=== PATIENT | female | born 1945 | race Caucasian/White ===

== ENCOUNTER 2017-01-15 06:12 | Inpatient (IN) | payer MEDICARE ==
[~2017-01-15 06:12] MED LIST: Acetaminophen TAB* 325 MG PO ONE; Buffered Lidocaine 0.9% SYRIN* 5 ML/SYR SYRINGE INTRADERM ONE; Dexamethasone IV* 4 MG/ML 1 ML (4 MG) IV SLOW PU ONE; Famotidine IV* 10 MG/ML 2 ML (20 mg) IV ONE
[2017-01-15] MEDS ORDERED: Dexamethasone IV* 4 MG/ML 1 ML (4 MG) ONE (06:23)
[2017-01-15] MEDS ORDERED: Acetaminophen TAB* 325 MG ONE (06:24)
[2017-01-15] MEDS ORDERED: Famotidine IV* 10 MG/ML 2 ML (20 mg) ONE (06:24)
[2017-01-15] MEDS ORDERED: Clindamycin 900 MG IVPREMIX(* 900 MG/50 ML SDV IV ONE (06:24)
[2017-01-15] MEDS ORDERED: Buffered Lidocaine 0.9% SYRIN* 5 ML/SYR SYRINGE ONE (06:24)
[2017-01-15] MEDS ORDERED: Morphine PF AMP (0.5MG/ML)* 5 MG/10 ML AMP ONE (06:53)
[2017-01-15] MEDS ORDERED: Bupivacaine 0.5% SDV PF* 30 ML VIAL ONE (06:53)
[2017-01-15] MEDS ORDERED: Midazolam* 1 MG/ML 5 ML VIAL (5 MG) ONE (06:53)
[2017-01-15] MEDS ORDERED: fentaNYL* 50 MCG/ML 2 ML VIAL (100 MCG VIAL) ONE (06:53)
[2017-01-15] MEDS ORDERED: Propofol* 500 MG/50 ML BTL ONE (06:53)
[2017-01-15] MEDS ORDERED: Lidocaine 2% PF * 5 ML VIAL ONE (06:53)
[2017-01-15] MEDS ORDERED: EPHEDrine (Pressors)* 50 MG/ML VIAL ONE (08:22)
[2017-01-15] MEDS ORDERED: Ketorolac INJ* 30 MG/ML 1 ML VIAL ONE (08:22)
[2017-01-15] MEDS ORDERED: Ondansetron INJ* 2 MG/ML VIAL ONE (08:22)
[2017-01-15] MEDS ORDERED: oxyCODONE TAB* 5 MG TAB PO PRN ×2 (08:34→08:38)
[2017-01-15] MEDS ORDERED: Nalbuphine* 20 MG/ML 1 ML VIAL IV PRN ×2 (08:34→08:38)
[2017-01-15] MEDS ORDERED: Naloxone* 0.4 MG/ML 1 ML VIAL IV PRN (08:34)
[2017-01-15] MEDS ORDERED: HYDROcodone/ACETAMIN 5-325 MG* 1 TAB PO PRN (08:34)
[2017-01-15] MEDS ORDERED: Ibuprofen TAB* 600 MG PO PRN (08:34)
[2017-01-15] MEDS ORDERED: diPHENhydraMINE IV* 50 MG/ML 1 ml VIAL (BENADRYL) IV PRN ×2 (08:34→09:57)
[2017-01-15] MEDS ORDERED: Acetaminophen TAB* 325 MG PO PRN ×2 (08:34→09:57)
[2017-01-15] MEDS ORDERED: Ondansetron INJ* 2 MG/ML VIAL IV PRN ×3 (08:34→09:57)
[2017-01-15] MEDS ORDERED: EPHEDrine (Pressors)* 50 MG/ML VIAL IV PUSH PRN (08:34)
[2017-01-15] MEDS ORDERED: oxyCODONE/Acetamin 5/325 MG* TAB PO PRN ×2 (08:38→09:57)
[2017-01-15] MEDS ORDERED: OBEPIDURAL* 250 ML EPIDURAL SCH (09:00)
[2017-01-15] MEDS ORDERED: Scopolamine 1.5 mg* PATCH TRANSDERM SCH (09:00)
[2017-01-15] MEDS ORDERED: Bisacodyl SUPP* 10 MG SUPP PR PRN (09:57)
[2017-01-15] MEDS ORDERED: Ondansetron TAB* 4 MG PO PRN (09:57)
--- NOTE | 2017-01-15 11:03 | RAD ---
INDICATION: Status post total right knee replacement surgery. TECHNIQUE: 2 views of the right knee were obtained. FINDINGS: The patient is status post total right knee replacement surgery. The bones and prostheses are in normal alignment. There are multiple surgical lizbeth which project anterior. IMPRESSION: STATUS POST TOTAL RIGHT KNEE REPLACEMENT SURGERY.
[2017-01-15] MEDS ORDERED: Dextrose 50% Syringe 50 ML* 25 GM/50 ML SYRINGE IV PUSH PRN (11:15)
[2017-01-15] MEDS: Insulin LISPRO* 1 UNITS UNIT SUBCUT SCH ×3 (13:36→21:01)
[2017-01-15] MEDS: Clindamycin 600 MG IVPREMIX(* 600 MG/50 ML SDV IV SCH ×2 (15:37→23:23)
[2017-01-15] MEDS ORDERED: Warfarin TAB(*) 4 MG PO ONE (17:00)
[2017-01-15] MEDS ORDERED: Warfarin TAB(*) 10 MG PO ONE (17:00)
--- NOTE | 2017-01-15 18:28 | CONS ---
CONSULTATION REPORT:* ADDENDUM: Sosa Coleman is a 71-year-old female who was evaluated by the medicine service postoperative total knee replacement as requested by Dr. Laboy. The patient has a history of diabetes and hypertension for the treatment of which recommendations were made. For further details for the patient's presentation and plan, please see consultation report dictated by Linda Friend NP, on 01/15/17, with which I agree. [id number]/[facility] #: [id number] MTDD
--- NOTE | 2017-01-15 19:09 | CONS ---
ATTENDING PHYSICIAN ADDENDUM NOW INCLUDED ON THIS REPORT CC: Dr. Laboy; ROSSI Arreguin * CONSULTATION REPORT: DATE OF CONSULT: 01/15/17 PHYSICIAN REQUESTING CONSULT: Dr. Laboy. PRIMARY CARE PROVIDER: ROSSI Arreguin ATTENDING PHYSICIAN: Dr. Britta Fortune * (report dictated by Linda Friend NP). REASON FOR CONSULT: Medical comanagement. HISTORY OF PRESENT ILLNESS: Ms. Coleman is a 71-year-old female with past medical history significant for well-controlled diabetes, hypertension, sleep apnea, GERD, and SVT, status post ablation, who presents to the hospital today for an elective right total knee replacement. Please refer to H and P dictated by Dr. Laboy for full details. In summary, the patient has had a failure of outpatient conservative medical treatment for her right knee pain and opted for right knee arthroplasty. Ms. Coleman states that her blood sugars have been well controlled on her current regimen. In addition, her blood pressure is also well controlled. The patient uses a CPAP for sleep apnea that she has brought with her. The patient states she continues to take sotalol and has not had any palpitations or episodes of SVT since her ablation. Hospitalists were asked to assist with the comanagement of the patient's multiple medical issues. PAST MEDICAL HISTORY: Type 2 diabetes; hypertension; obstructive sleep apnea; GERD; osteoarthritis; obesity; COPD; restless legs syndrome; SVT, status post ablation. PAST SURGICAL HISTORY: Cholecystectomy, lumpectomy, appendectomy, bilateral hip replacement, L3 to L5 lumbar fusion, and left total knee replacement, July 2015. MEDICATIONS: Home medications include: 1. Percocet 1 tablet oral every 6 hours as needed. 2. Glucophage 1000 mg oral in the morning and at bedtime. 3. Celebrex 100 mg oral in the morning. 4. Sotalol 40 mg oral twice daily. 5. Ropinirole 0.25 mg oral at bedtime. 6. Protonix 20 mg oral in the morning. 7. Fish oil 1200 mg oral twice daily. 8. Multivitamin 1 tablet oral daily. 9. Magnesium oxide 400 mg oral 3 times daily. 10. Lisinopril/hydrochlorothiazide 20/25 mg 1 tablet oral daily. 11. Tradjenta 5 mg oral in the morning. 12. Neurontin 600 mg oral at bedtime. 13. Flonase 1 spray both nares in the morning. 14. Vitamin B12 2500 mcg oral in the morning. 15. Trilipix 135 mg oral at bedtime. 16. Zyrtec 10 mg oral in the morning. 17. Soma 1 tablet oral twice daily as needed. 18. Calcium 600 mg oral in the morning. 19. Lipitor 20 mg oral at bedtime. FAMILY HISTORY: The patient reports history of coronary artery disease and cancer in the family. SOCIAL HISTORY: The patient has never been a smoker and seldom drinks alcohol. She denies any drug use. She lives with her , who will be the surrogate decision maker in the event the patient cannot make decisions for herself. REVIEW OF SYSTEMS: I performed a 14-point review of systems; all the pertinent positives and negatives are mentioned in the history of present illness. The remaining review of systems is negative. PHYSICAL EXAM: Vital Signs: Temperature 96.8, heart rate 54, respiratory rate 14, blood pressure 133/76, oxygen saturation 100%. Appearance: The patient is alert, appeared to be in no apparent distress. Head, Eyes, Ears, Nose, and Throat: Normocephalic/atraumatic. Pupils were equal and reactive to light. Extraocular movements were intact. Neck was supple. There was no lymphadenopathy noted. Respiratory: There was no accessory muscle use. Lungs were clear to auscultation. Cardiovascular: S1, S2 were crisp. Rate and rhythm were regular. There were no murmurs, rubs, or gallops heard. Abdomen: Soft, nontender, nondistended. There were bowel sounds x4. Extremities: There was no lower extremity edema. DP and PT pulses were 2+ and symmetric. Musculoskeletal: There was no clubbing or cyanosis noted. The patient exhibited equal strength in all extremities. Skin: There were no rashes or abnormalities seen. Right knee incision and dressing intact. Neuro: Cranial nerves II through XII are intact. The patient moves all extremities. Lower extremities were intact to light touch. Psych: The patient is alert and oriented x3. DIAGNOSTIC STUDIES/LAB DATA: Preop laboratory data from 01/03/17, sodium 137, potassium 4.5, chloride 103, CO2 26, BUN 38, creatinine 1.0, glucose 97, calcium 9.8. White blood cell count 3.3, hemoglobin 13, hematocrit 40, platelet count 198. INR 0.85, PTT 30.2. Urinalysis is negative. Imaging: Postoperative knee x-ray from 10:00 a.m. this morning shows status post total right knee replacement surgery. IMPRESSION: This is a 71-year-old female with past medical history significant for diabetes, hypertension, obstructive sleep apnea, and supraventricular tachycardia, status post ablation, who presents to hospital on 01/15/17 for an elective right total knee replacement. PLAN: 1. Postop day #0 status post right total knee arthroplasty. Management will be per Orthopedic Surgery. The patient will have physical therapy and occupational therapy. She will have pain medications as needed and a bowel regimen, and her H and H will be checked on a daily basis. Galvan will be discontinued on postop day #1. 2. Type 2 diabetes. Metformin and Tradjenta will be held. She will have blood sugars checked before every meal with Lispro coverage. 3. Hypertension. Currently blood pressure is controlled. Her blood pressure medicine will be held for now and can be restarted once her systolic blood pressure is greater than 140. 4. Obstructive sleep apnea. Continue home CPAP. 5. Hyperlipidemia. Continue atorvastatin. 6. DVT prophylaxis. Will be per Orthopedic Surgery starting with subcu heparin. 7. Disposition. Will be per Orthopedic Surgery. Thank you for this consultation. We will see the patient as needed. Please call with any further questions. Reviewed by LINDA FRIEND NP 01/16/2017 1130 ADDENDUM: Sosa Coleman is a 71-year-old female who was evaluated by the medicine service postoperative total knee replacement as requested by Dr. Laboy. The patient has a history of diabetes and hypertension for the treatment of which recommendations were made. For further details for the patient's presentation and plan, please see consultation report dictated by Linda Friend NP, on , with which I agree. BRITTA FORTUNE MD [id number]/[facility] #: [id number] Delma [id number]/[facility] #: [id number] CUBA
[2017-01-15] MEDS: Ropinirole TAB* 0.5 MG TAB PO SCH (21:00)
[2017-01-15] MEDS ORDERED: metFORMIN* 1,000 MG TAB PO SCH (21:00)
[2017-01-15] MEDS: Magnesium Hydroxide LIQ* 30 ML UDC PO SCH (21:01)
[2017-01-15] MEDS: Docusate CAP* 100 MG PO SCH (21:02)
[2017-01-15] MEDS: Atorvastatin* 20 MG TAB PO SCH (21:02)
[2017-01-15] MEDS: Gabapentin CAP(*) 300 MG PO SCH (21:02)
[2017-01-15] MEDS: Magnesium Oxide TAB* 400 MG PO SCH (21:02)
[2017-01-15] MEDS: Sotalol TAB* 80 MG PO SCH (21:02)
[2017-01-15] MEDS: CHOLINE FENOFIBRATE PO SCH (21:04)
--- NOTE | 2017-01-16 00:09 | OP ---
DATE OF OPERATION: 01/15/17 - ROOM #341 DATE OF : 41 SURGEON: Nikko Laboy MD ASSISTANTS: 1. Bethanie Blue RPA 2. Carola Alejandro RPA ANESTHESIOLOGIST: Jazmin Hogan MD ANESTHESIA: Spinal/epidural and sedation. PRE-OP DIAGNOSIS: Osteoarthritis, right knee. POST-OP DIAGNOSIS: Osteoarthritis, right knee. OPERATIVE PROCEDURE: Right total knee arthroplasty. INDICATIONS: Ms. Coleman is a 71-year-old female who has been having more and more troubles with her right knee and lower back pain. She recently underwent shoulder surgery, but was still using the pain killers from the surgery for her knee and not the shoulder. She reports that with scaling back the pain medicine , she realizes the knee has been quite limiting for her and she is very interested in a right total knee arthroplasty. She had previously undergone a left total knee arthroplasty a little over a year ago. Risks of surgery such as infection, scar formation, stiffness, DVT, pulmonary embolism, and hardware failure were some of the risks discussed. She had been declared medically optimized and wished to proceed. ESTIMATED BLOOD LOSS: Less than 50 cc. COMPLICATIONS: None. HARDWARE: Leonora Persona #4 femur, D tibia, 10-mm polyethylene, 32-mm all polyethylene patellar button. DESCRIPTION OF PROCEDURE: The patient was brought to the OR and spinal/ epidural anesthesia was introduced. Galvan catheter was then placed. Tourniquet was placed over the proximal right thigh and was used during the case. Total tourniquet time would be 68 minutes. Right knee was prepped and then draped. Bethanie Blue RPA and Carola Alejandro RPA were present throughout the case from positioning to draping and placement of the instrumentation and hardware. The case could not have been done without an electrician station assistant. Right knee was prepped and then draped. Esmarch was used to exsanguinate the limb. The tourniquet was raised. A midline incision was made centered about the patella and carried proximally and distally for about 6 cm above the superior and inferior poles of the patella. Incision was carried down through the skin and subcutaneous tissues. Small bleeders were ligated using electrocautery. Extensor mechanism was exposed and a sharp parapatellar arthrotomy was made. Quite a bit of clear yellowish joint fluid was encountered. Soft tissues were sharply elevated from the medial side of the tibia and the fat pad was sharply excised. Extensive wear of the patellofemoral joint could be seen where she had denuded all of the cartilage and had worn grooves into the bone. Similarly, she had worn away most of the lateral facet of the patella as well. Patella was measured and she was approximately 21 mm in thickness at the non-worn area. Patella cut was taken leaving approximately 11 mm of bone. Patella was then easily subluxated laterally and the knee was flexed up. Step drill was used over the femoral canal and intramedullary guide was placed. Guide was adjusted until it was parallel with the epicondyle and then pinned into place. Distal femoral cutting block was then pinned into place and intramedullary guide was removed. Distal femoral cut was taken and it appeared a nice cut was obtained. Femur was sized and she sized between a 4 and 5 once again. Holes were drilled, but we did not have the cutting blocks. Attention was turned to the tibia. Step drill was used over the tibial canal. Intramedullary guide was placed. Guide was adjusted until it appeared would take 2 mm from the worn medial side. Cutting guide was then pinned into place and proximal tibial cut was taken. It appeared a nice cut was obtained. Spacer block was placed and she was just a little snug with a 10-mm block. Additional 2 mm was taken and a little bit of bone was shaved from the medial side of the femur. Spacer block sat much nicely and alignment appeared quite good. Blocks finally had come up and 4 block was placed. Superior drill hole actually caused the drill to skive and bend because it was going right into where she had the hard sclerotic bone. Chevy wing was placed and it appeared it would not notch the femur. Anterior and posterior femoral cuts followed by the chamfer cuts were taken. She has had a very small notch towards the lateral side of the femur. Bone was removed and spacer block was used in extension and flexion and her gaps appeared quite good. Tibia was then sized and she sat nicely for a D. This was pinned into place, the proximal tibia was drilled and then punched. Femoral trial was placed and the stud holes were drilled and the femoral notch was taken. 10 polyethylene was placed and now she came out nicely into full extension and easily flexed. Patella would tend to slip every now and then. Patella was sized and appeared a [address], there will be a little bit of overhanging both where she had worn away on the lateral side and just a little bit by the medial side. Holes were drilled and trial was snapped into place. Patellar tracking was now very good. She had no longer wanted to sublux it. Trial instrumentation was removed and the knee was copiously pulse lavaged. Cement was been prepared. Tibia followed by femur and patella were all cemented into place. Excess cement was removed and cement was allowed to harden. Once the cement had hardened, knee was searched for excess cement and a few small pieces were found. Knee was again copiously pulse lavaged. She was again trialed with the 10 and had the same wonderful motion and stability. 10 polyethylene was then snapped into place. Knee was again copiously pulse lavaged and parapatellar arthrotomy was repaired using interrupted #1 Vicryl sutures. Tourniquet was let down and no significant bleeding was encountered. Knee was again pulse lavaged. The subcutaneous tissues were reapproximated with 2-0 Vicryl. Skin was closed using lizbeth. Sterile dressing and a Cryo/Cuff were applied in the OR. The patient was then awakened, stable on transfer to the recovery room. [id number]/[facility] #: [id number] CUBA
[2017-01-16 05:10] LABS: Hematocrit 30 % (35-47); Hemoglobin 10.2 g/dl (12.0-16.0)
[2017-01-16] MEDS: oxyCODONE TAB* 5 MG TAB PO PRN ×2 (05:20→17:33)
[2017-01-16 05:32] LABS: Calcium 8.8 mg/dL (8.6-10.3); EGFR African American 64.6 (>60); EGFR Non-African American 50.3 (>60); Potassium 4.2 mmol/L (3.5-5.0)
--- NOTE | 2017-01-16 08:02 | PN ---
Progress Note - Progress Note Date of Service: 01/16/17 SOAP: Subjective: []Patient seen at bedside. She complains of right knee pain, improved with soma and morphine. Percocet did not seem to reduce pain. Denies chest pain, shortness of breath, dizziness, nausea, leg numbness, chills or fever. Objective: [] Vital Signs Temp 98.2 F 01/16/17 07:23 Pulse 62 01/16/17 07:23 Resp 17 01/16/17 07:23 BP 105/51 01/16/17 07:23 Pulse Ox 95 01/16/17 07:23 Intake & Output 01/15/17 01/16/17 01/16/17 18:59 06:59 18:59 Intake Total 3160 2643 Output Total 1550 750 Balance 1610 1893 Intake: IV Fluids 1999 1443 LR 1443 lr 2000 Oral 1160 1200 Output: Galvan 1500 750 Estimated Blood Loss 50 Other: # Bowel Movements 0 Laboratory Last Values Hgb 10.2 g/dl (12.0-16.0) L 01/16/17 04:45 Hct 30 % (35-47) L 01/16/17 04:45 INR (Anticoag Therapy) 1.04 (0.89-1.11) 01/16/17 04:45 Sodium 134 mmol/L (133-145) 01/16/17 04:45 Potassium 4.2 mmol/L (3.5-5.0) 01/16/17 04:45 Chloride 102 mmol/L (101-111) 01/16/17 04:45 Carbon Dioxide 28 mmol/L (22-32) 01/16/17 04:45 Anion Gap 4 mmol/L (2-11) 01/16/17 04:45 BUN 30 mg/dL (6-24) H 01/16/17 04:45 Creatinine 1.07 mg/dL (0.51-0.95) H 01/16/17 04:45 Est GFR ( Amer) 64.6 (>60) 01/16/17 04:45 Est GFR (Non-Af Amer) 50.3 (>60) 01/16/17 04:45 BUN/Creatinine Ratio 28.0 (8-20) H 01/16/17 04:45 Glucose 115 mg/dL (70-100) H 01/16/17 04:45 POC Glucose (mg/dL) 181 mg/dL (70-100) H 01/15/17 16:30 Calcium 8.8 mg/dL (8.6-10.3) 01/16/17 04:45 General: Out of bed in chair. Calm, cooperative, well appearing and in no acute distress RLE: Dressing is clean, dry and intact. Bilateral lower extremities: Calves are supple and nontender without erythema, edema or palpable cords. Negative gale's sign. Sensation is intact distally. 2+ DP and PT pulses, brisk capillary refill. DF/PF intact. Assessment: []Right total knee arthroplasty 01/15, Dr. Laboy Plan: []WBAT PT/OT. Per PT may need SNF as patient required after last TKA Glucose elevated yesterday, improved today. Continues to have finger stick prior to meals Percocet not controlling pain, per patient morphine and soma much better pain control Coumadin 6 mg today
[2017-01-16] MEDS: Morphine INJ* 2 MG/ML 1 ML SYRINGE (TWO MG - NEW SYRINGE VERSION) IV PRN ×3 (08:04→23:08)
[2017-01-16] MEDS: Sotalol TAB* 80 MG PO SCH ×2 (08:07→20:44)
[2017-01-16] MEDS: Docusate CAP* 100 MG PO SCH ×2 (08:07→20:43)
[2017-01-16] MEDS: Carisoprodol TAB* 350 MG PO PRN ×2 (08:07→20:43)
[2017-01-16] MEDS: Cyanocobalamin TAB* 500 MCG PO SCH (08:08)
[2017-01-16] MEDS: Vitamin THERAPEUTIC TAB PO SCH (08:09)
[2017-01-16] MEDS: Cetirizine* 10 MG TAB PO SCH (08:09)
[2017-01-16] MEDS: Magnesium Oxide TAB* 400 MG PO SCH ×3 (08:09→20:43)
[2017-01-16] MEDS: Magnesium Hydroxide LIQ* 30 ML UDC PO SCH ×2 (08:09→20:44)
[2017-01-16] MEDS: Omeprazole CAP* 20 MG PO SCH (08:09)
[2017-01-16] MEDS: Fluticasone NASAL SPRAY 50MCG* 16 gm SPRAY BTL BOTH NARES SCH (08:10)
[2017-01-16] MEDS: Clindamycin 600 MG IVPREMIX(* 600 MG/50 ML SDV IV SCH (08:10)
[2017-01-16] MEDS: Heparin VIAL(*) 5000 UNITS/ML VIAL (FIVE THOUSAND) SUBCUT SCH ×2 (08:11→20:46)
[2017-01-16] MEDS ORDERED: Lisinopril/HCTZ 20/25(NF) TAB PO SCH (09:00)
[2017-01-16] MEDS ORDERED: Linagliptin (NF) 5 MG TAB PO SCH (09:00)
[2017-01-16] MEDS: Insulin LISPRO* 1 UNITS UNIT SUBCUT SCH ×4 (09:30→20:45)
[2017-01-16] MEDS: oxyCODONE/Acetamin 5/325 MG* TAB PO PRN ×3 (10:25→19:31)
[2017-01-16] MEDS ORDERED: Warfarin TAB(*) 6 MG PO SCH (17:00)
[2017-01-16] MEDS: Ropinirole TAB* 0.5 MG TAB PO SCH (20:42)
[2017-01-16] MEDS: Atorvastatin* 20 MG TAB PO SCH (20:42)
[2017-01-16] MEDS: Gabapentin CAP(*) 300 MG PO SCH (20:43)
[2017-01-16] MEDS: CHOLINE FENOFIBRATE PO SCH (21:28)
[2017-01-17] MEDS: oxyCODONE/Acetamin 5/325 MG* TAB PO PRN ×4 (04:38→23:47)
[2017-01-17 05:30] LABS: Hematocrit 35 % (35-47); Hemoglobin 11.5 g/dl (12.0-16.0)
--- NOTE | 2017-01-17 07:15 | PN ---
Progress Note - Progress Note Date of Service: 01/17/17 SOAP: Subjective: Pt found sleeping, easily arousable. Reports had to get to the bathroom a few times o/n, getting up tired her out. + BM Objective: VSS- afebrile. Labs: H/H: 11.5/35, INR: 2.46 RIght knee wound benign. No drainage, no erythema, some swelling. Easily moves ankle and toes Assessment: Stable Plan: Cont OOB/PT, DVT prophalaxis, care.
[2017-01-17] MEDS: Insulin LISPRO* 1 UNITS UNIT SUBCUT SCH ×4 (08:35→19:43)
[2017-01-17] MEDS: Magnesium Hydroxide LIQ* 30 ML UDC PO SCH ×2 (08:56→19:41)
[2017-01-17] MEDS: Cyanocobalamin TAB* 500 MCG PO SCH (09:50)
[2017-01-17] MEDS: Cetirizine* 10 MG TAB PO SCH (09:50)
[2017-01-17] MEDS: Hydrochlorothiazide TAB* 25 MG PO SCH (09:51)
[2017-01-17] MEDS: Lisinopril TAB* 10 MG PO SCH (09:51)
[2017-01-17] MEDS: Sotalol TAB* 80 MG PO SCH ×2 (09:52→19:52)
[2017-01-17] MEDS: Omeprazole CAP* 20 MG PO SCH (09:52)
[2017-01-17] MEDS: Magnesium Oxide TAB* 400 MG PO SCH ×3 (09:52→19:51)
[2017-01-17] MEDS: Vitamin THERAPEUTIC TAB PO SCH (09:54)
[2017-01-17] MEDS: Fluticasone NASAL SPRAY 50MCG* 16 gm SPRAY BTL BOTH NARES SCH (10:54)
[2017-01-17] MEDS: Docusate CAP* 100 MG PO SCH ×2 (10:55→19:50)
[2017-01-17] MEDS: oxyCODONE TAB* 5 MG TAB PO PRN ×2 (12:02→19:50)
[2017-01-17] MEDS: Morphine INJ* 2 MG/ML 1 ML SYRINGE (TWO MG - NEW SYRINGE VERSION) IV PRN (14:26)
[2017-01-17] MEDS: Gabapentin CAP(*) 300 MG PO SCH (19:49)
[2017-01-17] MEDS: Atorvastatin* 20 MG TAB PO SCH (19:50)
[2017-01-17] MEDS: Ropinirole TAB* 0.5 MG TAB PO SCH (19:51)
[2017-01-17] MEDS: CHOLINE FENOFIBRATE PO SCH (20:30)
[2017-01-18] MEDS: oxyCODONE TAB* 5 MG TAB PO PRN (04:55)
[2017-01-18 06:19] LABS: Hematocrit 31 % (35-47); Hemoglobin 10.5 g/dl (12.0-16.0)
--- NOTE | 2017-01-18 07:39 | DS ---
AMENDED REPORT NOW INCLUDES COSIGNER DESIGNATION - ESIGNED BEFORE ADJUSTMENTS DISCHARGE SUMMARY: DATE OF ADMISSION: 01/15/17 DATE OF DISCHARGE: 01/18/17 DATE OF OPERATION: 01/15/17 PROVIDER: Dr. Nikko Laboy * (DICTATED BY ROSSI SMITH) ASSISTANTS: 1. ROSSI Alarcon 2. ROSSI Robbins PREOPERATIVE DIAGNOSIS: Osteoarthritis of the right knee. OPERATIVE PROCEDURE: Right total knee arthroplasty. HISTORY: Ms. Coleman is a 71-year-old female who has been having more troubles with her right knee and lower back pain. She recently underwent shoulder surgery but was using pain killers from the surgery for her knee not the shoulder. She reports that with scaling back on the pain medication, she realizes that the knee has been quite limiting for her and she is very interested in right total knee arthroplasty. She has previously undergone left total knee arthroplasty. HOSPITAL COURSE: The patient was admitted to [facility] on 01/15/17 and underwent a right total knee arthroplasty by Dr. Laboy with no complications. The patient recovered shortly in the postanesthesia care unit and was then transferred to the short stay surgical unit in stable condition. On postop day 1, the patient's H and H was 10.2/30. INR was 1.04 after a dose of Coumadin of 8 mg the night before. Dressing was clean, dry, and intact. Extremity was neurovascularly intact. She did demonstrate dorsi and plantar flexion with good strength. She was able to get out of bed with physical therapy. She required IV morphine and oral Soma for pain control on postop day 2. Incision was benign, minimal discharge. No erythema or warmth. The patient 's H and H was 11.5/35 and INR was 2.04 from a dose of 6 mg of Coumadin the night before. Pain was controlled with Percocet, oxycodone, morphine. The patient was able to ambulate using rolling walker and assistance. Postop day 3 , the patient's H and H was 105/31. INR was 2.24 after a dose of 0 mg of Coumadin the night before. The patient's pain was well controlled and was found stable for discharge. Throughout her hospital course, her vital signs have remained stable and she was afebrile. DISCHARGE CONDITION: Stable to [facility]. DISCHARGE MEDICATIONS: 1. Calcium 600 mg p.o. q.a.m. 2. Tradjenta 5 mg p.o. q.a.m. 3. Soma 350 mg 1 tab p.o. b.i.d. p.r.n. 4. Gabapentin 300 mg capsule take 2 tabs p.o. at bedtime. 5. Ropinirole 0.25 mg p.o. at bedtime. 6. Trilipix 135 mg capsule p.o. at bedtime. 7. Metformin 1000 mg tab in a.m. and at bedtime. 8. Sotalol 40 mg p.o. in a.m. and at bedtime. 9. Atorvastatin 20 mg at bedtime. 10. Multivitamin 1 cap q.a.m. 11. B12 2500 mcg p.o. q.a.m. 12. Pantoprazole 20 mg p.o. q.a.m. 13. Flonase 1 spray both nares q.a.m. 14. Zyrtec Allergy 10 mg capsule p.o. q.a.m. 15. Fish oil 1200 mg b.i.d. 16. Percocet 5/325 one to two tabs by mouth q.4 to 6 hours p.r.n. pain, MDD of 8. 17. Zestoretic one tab p.o. daily. 18. Magnesium oxide 400 mg p.o. t.i.d. 19. Colace 100 mg p.o. b.i.d. 20. Coumadin 2 mg dosing as suggested by INRs. DISCHARGE INSTRUCTIONS: The patient will be discharged to [facility] facility. She is weightbearing as tolerated. She may shower, allowing water to run on the wound with light soap and water, pad dry, do not submerge. Nursing staff will offer wound checks and wound care dressing can be changed daily. Remove lizbeth in 10 to 12 days. INRs are to be done Sunday and to determine Coumadin dosing. Take 0 mg 01/18, take 2 mg 01/19,18,19. Recheck INR 01/22 for further dosing instruction. If you experience shortness of breath or chest pain, go to the emergency room. If wound site is red, draining, worsening pain, please call our office. BHAVIN GARCÍA, ROSSI [id number]/[facility] #: [id number] [facility] F[facility]ERI CHILDREN'S HOSPITALKaela
[2017-01-18] MEDS: Insulin LISPRO* 1 UNITS UNIT SUBCUT SCH ×2 (08:32→12:19)
[2017-01-18] MEDS ORDERED: Scopolamine PATCH Remove* 1 NOTE MISC PATCH OFF ONE (08:35)
[2017-01-18] MEDS: Magnesium Hydroxide LIQ* 30 ML UDC PO SCH (08:47)
[2017-01-18] MEDS: Fluticasone NASAL SPRAY 50MCG* 16 gm SPRAY BTL BOTH NARES SCH (08:53)
[2017-01-18] MEDS: Omeprazole CAP* 20 MG PO SCH (08:54)
[2017-01-18] MEDS: Sotalol TAB* 80 MG PO SCH (08:54)
[2017-01-18] MEDS: Magnesium Oxide TAB* 400 MG PO SCH ×2 (08:54→13:12)
[2017-01-18] MEDS: Hydrochlorothiazide TAB* 25 MG PO SCH (08:54)
[2017-01-18] MEDS: Lisinopril TAB* 10 MG PO SCH (08:54)
[2017-01-18] MEDS: Vitamin THERAPEUTIC TAB PO SCH (08:55)
[2017-01-18] MEDS: Docusate CAP* 100 MG PO SCH (08:55)
[2017-01-18] MEDS: Cyanocobalamin TAB* 500 MCG PO SCH (08:55)
[2017-01-18] MEDS: Cetirizine* 10 MG TAB PO SCH (08:55)
--- NOTE | 2017-01-18 10:40 | PN ---
Progress Note - Progress Note Date of Service: 01/18/17 SOAP: Subjective: []Patient seen out of bed in chair. She denies pain. No shortness of breath, chest pain, nausea, dizziness or leg numbness. Her operative leg is swollen and not painful, she reports that this was the case after her other knee was done as well. Objective: [] Vital Signs Temp 98.0 F 01/18/17 07:23 Pulse 67 01/18/17 07:23 Resp 18 01/18/17 10:26 BP 130/58 01/18/17 07:23 Pulse Ox 99 01/18/17 08:00 Intake & Output 01/17/17 01/18/17 01/18/17 18:59 06:59 18:59 Intake Total 2040 100 300 Output Total 1250 700 200 Balance 790 -600 100 Intake: Oral 2040 100 300 Output: Urine 1250 700 200 Other: Estimated Void Medium Large Date of Last Bowel 01/17/17 Movement # Bowel Movements 1 Estimated Stool Amount Medium # Voids 1 1 Laboratory Last Values Hgb 10.5 g/dl (12.0-16.0) L 01/18/17 06:08 Hct 31 % (35-47) L 01/18/17 06:08 INR (Anticoag Therapy) 2.24 (0.89-1.11) H 01/18/17 06:08 Sodium 134 mmol/L (133-145) 01/16/17 04:45 Potassium 4.2 mmol/L (3.5-5.0) 01/16/17 04:45 Chloride 102 mmol/L (101-111) 01/16/17 04:45 Carbon Dioxide 28 mmol/L (22-32) 01/16/17 04:45 Anion Gap 4 mmol/L (2-11) 01/16/17 04:45 BUN 30 mg/dL (6-24) H 01/16/17 04:45 Creatinine 1.07 mg/dL (0.51-0.95) H 01/16/17 04:45 Est GFR ( Amer) 64.6 (>60) 01/16/17 04:45 Est GFR (Non-Af Amer) 50.3 (>60) 01/16/17 04:45 BUN/Creatinine Ratio 28.0 (8-20) H 01/16/17 04:45 Glucose 115 mg/dL (70-100) H 01/16/17 04:45 POC Glucose (mg/dL) 107 mg/dL (70-100) H 01/18/17 07:18 Calcium 8.8 mg/dL (8.6-10.3) 01/16/17 04:45 General: Well appearing, no acute distress RLE: Incision clean, dry, intact without surrounding erythema or edema. Lower leg with 2+ edema and mild erythema circumferentially. Belly of calf and anterior sanabria are equally tender. No palpable cords, negative gale's sign. DF/ PF intact. DP/PT 2+. Capillary refill and sensation intact distally. LLE: Calf supple, 1+ edema. No erythema or palpable cords. Negative gale's sign. DF/PF intact, PT/PT 2+. Capillary refill brisk distally and sensation intact distally. Assessment: []s/p Right total knee arthroplasty POD3 Plan: []WBAT PT/OT Pain control with percocet, soma, gabapentin To [facility] bed today Patient educated on signs and symptoms of DVT/PE. Prophylaxis with coumadin 0 mg 01/18, 2 mg 01/19, , and recheck 01/22
[2017-01-18 11:31] VITALS: BP 140/56
[2017-01-18] MEDS: oxyCODONE/Acetamin 5/325 MG* TAB PO PRN (12:10)
== END 2017-01-18 14:40 | disposition swing bed (61) | DRG 470 ==
LOC: AA 06:12 → SSU 12:24
PROVIDERS: ADMIT Orthopaedic Surgery; ATTEND Orthopaedic Surgery
PROC: 0SRC0J9 Replacement of Right Knee Joint with Synthetic Substitute, Cemented, Open Approach (ICD-10-PCS; principal; 2017-01-15 07:30)
DX: M17.11 Unilateral primary osteoarthritis, right knee (principal); I48.0 Paroxysmal atrial fibrillation; E11.9 Type 2 diabetes mellitus without complications; J44.9 Chronic obstructive pulmonary disease, unspecified; G47.33 Obstructive sleep apnea (adult) (pediatric); E66.9 Obesity, unspecified; G25.81 Restless legs syndrome; E78.5 Hyperlipidemia, unspecified; Z96.643 Presence of artificial hip joint, bilateral; Z96.652 Presence of left artificial knee joint; I10 Essential (primary) hypertension; K21.9 Gastro-esophageal reflux disease without esophagitis; Z79.01 Long term (current) use of anticoagulants; Z79.84 Long term (current) use of oral hypoglycemic drugs; Z88.0 Allergy status to penicillin; Z68.38 Body mass index [BMI] 38.0-38.9, adult; Z90.49 Acquired absence of other specified parts of digestive tract; Z98.1 Arthrodesis status; Z82.49 Family history of ischemic heart disease and other diseases of the circulatory system; Z80.9 Family history of malignant neoplasm, unspecified
CPT/HCPCS: 36415; 62327; 80048; 85014; 85018; 85610; A9270-GY; C1776; J1100; J1644; J1885; J2250; J2270; J2405; J2704; J3010

== ENCOUNTER 2023-03-13 22:01 | Observation (INO) ==
[2023-03-14] MEDS ORDERED: Senna TAB 8.6 mg TAB PO PRN (13:06)
[2023-03-14] MEDS ORDERED: Polyethylene Glycol 3350 17 GM PACKET PO PRN (13:06)
[2023-03-14] MEDS ORDERED: Ondansetron 4 mg VIAL 2 MG/ML 2 ml VIAL IV PRN (13:06)
[2023-03-14] MEDS: Enoxaparin 40 MG/0.4 ML SYR SUBCUT SCH (14:16)
[2023-03-14 16:18] LABS: Hematocrit 40.1 % (35-45); Hemoglobin 13.2 g/dL (11.5-14.3); Mean Corpuscular Hemoglobin 27.3 pg (27-33); Mean Corpuscular Volume 82.7 fL (80-97); Mean Platelet Volume 8.8 fL (7.5-11.2); Platelet Count 231 10^3/uL (150-450); Red Blood Count 4.85 10^6/uL (3.63-4.92); Red Cell Distribution Width 14.8 % (12-17); White Blood Count 6.9 10^3/uL (3.8-11.8)
[2023-03-14 16:34] LABS: Calcium 9.7 mg/dL (8.6-10.3); Creatinine, Serum 1.27 mg/dL (0.51-0.95); Potassium 4.6 mmol/L (3.5-5.0); eGFR CKD-EPI 42.8 (>60)
[2023-03-14] MEDS: LINAGLIPTIN 5 MG PO SCH (17:21)
[2023-03-14] MEDS: oxyCODONE/Acetamin 5/325 mg TAB PO PRN (21:04)
[2023-03-15 06:17] LABS: ABS Eosinophils 0.1 10^3/uL (0.0-0.5); ABS Lymphocytes 1.9 10^3/uL (1.0-4.8); ABS Monocytes 0.7 10^3/uL (0.0-0.9); ABS Neutrophils 3.1 10^3/uL (1.5-7.6); Eosinophil % 2.1 %; Hematocrit 36.2 % (35-45); Hemoglobin 11.9 g/dL (11.5-14.3); Lymphocyte % 32.8 %; Mean Corpuscular Hemoglobin 27.3 pg (27-33); Mean Corpuscular Hgb Conc 32.9 g/dL (31-36); Mean Platelet Volume 8.9 fL (7.5-11.2); Platelet Count 196 10^3/uL (150-450); Red Blood Count 4.36 10^6/uL (3.63-4.92); Red Cell Distribution Width 14.6 % (12-17); White Blood Count 5.9 10^3/uL (3.8-11.8)
[2023-03-15 06:28] LABS: Calcium 9.4 mg/dL (8.6-10.3); Creatinine, Serum 0.98 mg/dL (0.51-0.95); Potassium 3.7 mmol/L (3.5-5.0); eGFR CKD-EPI 58.3 (>60)
[2023-03-15] MEDS: Potassium Chlor 20 meq TAB.ER PO ONE (09:09)
[2023-03-15] MEDS: Fluticasone NASAL SPRAY 50MCG 16 gm SPRAY BTL INTRANASAL SCH (09:32)
[2023-03-15 09:42] VITALS: BP 146/83
== END 2023-03-15 14:50 | disposition home or self-care (01) ==
LOC: MEDTELE 03-14 11:51 → INTOOBSV 03-14 11:51 → MED 03-14 18:16
PROVIDERS: ADMIT Internal Medicine; ATTEND Internal Medicine